=== PATIENT | female | born 1995 | race Caucasian/White ===

== ENCOUNTER 2023-11-25 14:14 | Outpatient (CLI) | payer BC, SELFPAY ==
--- NOTE | 2023-11-25 14:00 | CRLHL7_ITS ---
For Patients: As a result of the Century Cures Act, medical imaging exams and procedure reports are released immediately into your electronic medical record. You may view this report before your referring provider. If you have questions, please contact your health care provider. INDICATION: First trimester scan, establish dates. COMPARISON: None. TECHNIQUE: Real-time guadalupe-scale imaging of the pelvis was performed. FINDINGS: Sonographic imaging demonstrates a single living intrauterine gestation. The embryo demonstrates a regular cardiac rate measuring 144 beats per minute. The embryo`s crown-rump length measurement of 1 cm corresponds to a gestational age of 7 weeks 0 days with a sonographic due date of 07/13/2024. There is a normal-appearing yolk sac. There are no gross abnormalities noted within the embryo at this early state of development. The gestational sac has a normal appearance. There is no evidence of a perigestational hemorrhage. The amount of fluid within the sac appears appropriate for gestational age. The cervix is closed. The myometrium appears normal. The ovaries are of normal size. Corpus luteal cyst right ovary. There are no suspicious fluid collections noted in the cul-de-sac. IMPRESSION: Normal first trimester OB ultrasound exam. Gestational age calculated at 7 weeks 0 days with a sonographic due date of 07/13/2024. Dictated by Nilton Castorena MD @ 11/29/2023 10:29:00 AM (Electronically Signed)
== END 2023-11-25 14:15 | disposition home or self-care (01) ==
LOC: US 14:17
PROVIDERS: PCP Family Medicine; Visit Provider Registered Nurse
DX: Z34.91 Encounter for supervision of normal pregnancy, unspecified, first trimester (principal); Z3A.01 Less than 8 weeks gestation of pregnancy
CPT/HCPCS: 76817; 86592; 86703; 86704; 86706; 86762; 86787; 86803; 86850; 86900; 86901; 87086; 87340; 87491; 87591

== ENCOUNTER 2024-02-17 08:04 | Outpatient (CLI) | payer BC, SELFPAY ==
--- NOTE | 2024-02-17 08:15 | US_ITS ---
Patient: TANIA STOCK Facility:?[facility] Patient ID:?[id number] Site Patient ID:?[id number]. Site :?1995 Study:?US-OB Pelvis OB > 14wks-02/17/2024 9:54:09 AM Ordering Physician:Ceci Torres Final Report: INDICATION: Evaluate anatomy. COMPARISON: 11/25/2023 TECHNIQUE: Real time guadalupe scale imaging of the fetus was performed as well as color Doppler analysis of the umbilical vessels. FINDINGS: Sonographic imaging demonstrates a single living intrauterine gestation. Fetus demonstrates a regular cardiac rate of 152 beats per minute. Fetus has a breech position. The placenta lies fundal posterior without evidence of placenta previa. Placental edge 7.5 cm from the internal cervical os. Amniotic fluid volume appears normal. Single deepest vertical pocket: 3.2 cm. The cervix is closed and measures 3.4 cm in length. The composite ultrasound gestational age is calculated at 19 weeks 0 days with an estimated sonographic due date of 07/13/2024. The estimated weight is 267 grams which lies at the 44th %. The following biometric measurements were obtained: Biparietal diameter: 4.3 cm/18 weeks 6 days 47th% Head circumference: 15.8 cm/18 weeks 5 days 26th% Abdominal circumference: 13.2 cm/18 weeks 5 days 37th% Femur length: 3.0 cm/19 weeks 2 days 55th% The HC/AC ratio measures: 1.19 range (1.09-1.26) On anatomic survey, there is a normal appearance of the cerebral ventricles, cavum septi pellucidi, cisterna magna and cerebellum. The nose, lips, and facial profile appear normal. The cervical, thoracic and lumbar spine are not well visualized due to position. Possible echogenic focus in the left ventricle. Outflow tracts appear normal. The diaphragm and stomach appear normal. The kidneys and bladder also appear normal. There is a normal three-vessel cord and cord insertion site. The four extremities appear normal. IMPRESSION: Concordance of clinical and sonographic dating. Possible echogenic focus in the left ventricle. Incomplete visualization of the spine due to position. Follow-up in 1-2 weeks recommended. Remainder of the anatomic survey normal. Dictated by Nilton Castorena MD @ 02/17/2024 11:55:29 AM Signed by:?Nilton Castorena MD @02/17/2024 11:55:29 AM (Electronic Signature)
== END 2024-02-17 08:05 | disposition home or self-care (01) ==
LOC: US 08:04
PROVIDERS: PCP Family Medicine; Visit Provider Obstetrics & Gynecology
DX: Z34.92 Encounter for supervision of normal pregnancy, unspecified, second trimester (principal); Z3A.19 19 weeks gestation of pregnancy
CPT/HCPCS: 76805

== ENCOUNTER 2024-03-23 12:52 | Outpatient (CLI) | payer BC, SELFPAY ==
--- NOTE | 2024-03-23 13:00 | US_ITS ---
Patient: TANIA STOCK Facility:?[facility] Patient ID:?[id number] Site Patient ID:?[id number]. Site :?1995 Study:?US-OB Pelvis FOLLOW UP-03/23/2024 1:20:22 PM Ordering Physician:SUSAN FERNÁNDEZ Final Report: HISTORY: Incomplete anatomic survey COMPARISON: Early OB ultrasound from 11/25/2023 TECHNIQUE: Ultrasound examination of the is performed with transabdominal technique. FINDINGS: A single intrauterine gestation is seen in cephalic presentation with regular cardiac activity at 145 beats per minute. The placenta is posterior and is free of the cervical os. The placental grade is 1 and the amniotic fluid volume is normal. Single deepest vertical pocket: Normal at 5.0 cm. Images of the spine are normal. IMPRESSION: 1. Single intrauterine gestation in the cephalic presentation with regular cardiac activity. 2. Images of the spine are normal. Dictated by Tru Cobb MD @ 03/24/2024 10:38:39 PM Signed by:?Tru Cobb MD @03/24/2024 10:38:39 PM (Electronic Signature)
== END 2024-03-23 12:53 | disposition home or self-care (01) ==
LOC: US 12:53
PROVIDERS: PCP Family Medicine; Visit Provider Obstetrics & Gynecology
DX: Z34.90 Encounter for supervision of normal pregnancy, unspecified, unspecified trimester (principal)
CPT/HCPCS: 76816

== ENCOUNTER 2024-05-02 13:20 | Outpatient (CLI) | payer BC, SELFPAY | END 2024-05-02 13:21 | disposition home or self-care (01) | LOC: NFLDREF 05-18 15:26 | PROVIDERS: PCP Family Medicine; Referring Provider Family Medicine; Visit Provider Obstetrics & Gynecology | DX: Z34.83 Encounter for supervision of other normal pregnancy, third trimester (principal) | CPT/HCPCS: 86592 ==

== ENCOUNTER 2024-05-30 10:32 | Outpatient (CLI) | payer BC, SELFPAY | END 2024-05-30 10:33 | disposition home or self-care (01) | LOC: NFLDREF 06-01 05:52 | PROVIDERS: PCP Family Medicine; Referring Provider Family Medicine; Visit Provider Obstetrics & Gynecology | DX: Z34.90 Encounter for supervision of normal pregnancy, unspecified, unspecified trimester (principal) | CPT/HCPCS: 82728 ==

== ENCOUNTER 2024-06-12 17:23 | Outpatient (CLI) | payer BC, SELFPAY ==
[2024-06-13 15:14] LABS: Strep B DNA Probe Negative (Negative)
[2024-06-15 12:10] LABS: Strep B Susceptibility Needed? No
== END 2024-06-12 17:24 | disposition home or self-care (01) ==
LOC: NFLDREF 17:23
PROVIDERS: PCP Family Medicine; Visit Provider Registered Nurse
DX: Z34.93 Encounter for supervision of normal pregnancy, unspecified, third trimester (principal); Z3A.35 35 weeks gestation of pregnancy
CPT/HCPCS: 87081; 87653

== ENCOUNTER 2024-07-14 17:15 | Outpatient (CLI) | payer BC, SELFPAY ==
[2024-07-14 17:30] VITALS: PULSE 79; O2SAT 97
[2024-07-14 17:32] VITALS: BP 121/74; PULSE 75
[2024-07-14 17:35] VITALS: PULSE 85; O2SAT 97
--- NOTE | 2024-07-14 19:28 | PC.OBNST ---
NST Note NST Note Start: 07/14/24 17:22 Freq: ONCE Status: Active Protocol: Document 07/14/24 19:25 VMM (Rec: 07/14/24 19:28 VMM Desktop) NST Note 3 Para (# of births) 2 EDC 07/13/24 Gestational Age In Weeks & Days 40 Weeks & 1 Days Patient Presented with Complaint(s) of Contractions/cramping Reactive Yes RN Lilian Barakat, RN, Lenora Woodard, RN Date 07/14/24 Reactive Yes CHRISTINE Choudhary, RN Date 07/14/24 OB NST charge Yes Complete NST Note via Write Note Yes The provider's electronic signature indicates the NST is reactive/appropriate for gestational age. *Note to provider: If an addendum is required, open the patient's chart and click on the note under the Nurse/Allied Health tab.
== END 2024-07-14 19:20 | disposition home or self-care (01) ==
LOC: OB OUT 17:15 → OB 17:16
PROVIDERS: PCP Family Medicine; Visit Provider Obstetrics & Gynecology
DX: O47.1 False labor at or after 37 completed weeks of gestation (principal); Z3A.40 40 weeks gestation of pregnancy
CPT/HCPCS: 59025; G0463

== ENCOUNTER 2024-07-16 03:54 | Inpatient (IN) | payer BC, SELFPAY ==
[2024-07-16] VITALS (20 sets, daily range): BP systolic 108–145; BP diastolic 57–94; PULSE 66–106; RESP 16; TEMP 36.7–36.9; O2SAT 97–99; BMI 27.3
[2024-07-16 03:42] LABS: Amnisure Rom* Negative
[2024-07-16] MEDS: LACTATED RINGERS 1000 ML 1,000 ML 1200 ML IV (04:00)
[2024-07-16 04:17] LABS: Hemoglobin* 10.9 gm/dL (12.0-16.0); Mean Corpuscular HGB Conc 32 gm/dL (32-36); Mean Corpuscular Hemoglobin 28 pg (26-34); Mean Corpuscular Volume 87 fL (80-100); Platelet Count* 260 K/uL (140-440); Red Blood Count 3.93 m/uL (4.00-5.20); White Blood Count* 10.36 K/uL (4.50-11.00)
[2024-07-16 04:18] LABS: Slide Review Reflex No
[2024-07-16 04:42] LABS: Alanine Aminotransferase* 10 U/L (4-35); Aspartate Amino Transferase* 19 U/L (12-35); Blood Urea Nitrogen* 9 mg/dL (5-24); Creatinine* 0.5 mg/dL (0.5-1.5); Estimated Glomerular Filt Rate 130 ml/min
[2024-07-16] MEDS: LACTATED RINGERS 1000 ML 1,000 ML 125 ML IV (05:04)
[2024-07-16] MEDS: OXYTOCIN 30 unit/500 ML in NS 30 UNIT/500 ML BAG 300 UNIT IVPB (05:13)
--- NOTE | 2024-07-16 05:23 | W.PM.LDBA ---
Subjective History of Present Illness Date Seen: 07/16/24 Narrative: Patient is being admitted to Labor and Delivery for labor. She is a 29 year old at 40 3/7 weeks gestation. She had AROM at 1:58 AM for thin meconium stained fluid. She was having strong contractions upon arrival, and went on to have a precipitous vaginal . Her full history and physical was dictated by Dr. Petty on 06/22/24. Please see this for details. She had one mildly elevated blood pressure around time of admission. Specific Issues/Plans G 3 P 2001 Fiance: Jania (This will be their 2nd child together. He has 2 kids from previous relationship.) Normal genetic screening, girl! #Anemia -Hgb at 29 weeks: 10.6mg/dL -PO iron -Hgb at 34 weeks: 10.7. Patient states she did not start an iron supplement. I did recommend she initiate this. #Asthma - Rx for albuterol inhaler provided, recommend PCP eval if worsening sx Will need PP pap. Flu: Recommended. Not vaccinated, declines Covid: Recommended. Not vaccinated, declines Tdap: Declines. H&P: Dr. Petty on 06/22/24 PP contraception: Partner's vasectomy OB - Problem Based A/P Additional Plan (1) (normal spontaneous vaginal delivery): Status: Acute Plan Routine care OB Result Labs Labs: Hemoglobin 10.9, platelets 260 BUN 9, creatinine 0.5 AST 19, ALT 10 OB Exam Physical Exam Vital signs: Pulse BP Pulse Ox 75 137/69 99 07/16/24 05:17 07/16/24 05:17 07/16/24 05:09 Narrative: Physical exam: General: No acute distress Psych: Alert and oriented x3, full affect HEENT: Normocephalic, atraumatic Heart: Regular rate and rhythm, no murmur rub or gallop Lungs: Clear to auscultation bilaterally Abdomen: Now soft, nontender, fundus just below umbilicus Lower extremities: No edema or erythema Pelvic exam: No perineal lacerations
--- NOTE | 2024-07-16 05:30 | W.PM.VAGDEL1 ---
Procedure Delivery date: 07/16/24 Procedure Done: [employer] Procedure Details: The patient is a 29 year-old G 3 P 2-0-0-2 admitted on 07/16/2024 at 40 Weeks, 3 Days gestation for labor.? Cervical exam on admission was 5 cm/40 % effaced/-2 station with membranes ruptured in vertex presentation.? Contractions were every 5 minutes.? heart rate demonstrated baseline 110 bpm with moderate variability, positive accelerations, no decelerations; a category 1 tracing.? SROM had occurred at 1:55 a.m. with thin meconium-stained fluid. ? Labor Analgesia:? None given precipitous nature of delivery ? Pitocin:? No ? Labor onset:? 3:30 a.m. ? Complete:? 5:05 a.m. ? Pushing:? 5:09 a.m. ? heart tones during second stage were showed some values in the 100s, but the tracing was discontinuous and the 2nd stage quite short. ? At 5:11 a.m. a viable female delivered in vertex presentation over intact perineum via spontaneous vaginal delivery.? was placed on maternal abdomen.? Cord was clamped and cut after a 30-60 second delay.? Nose and mouth were bulb suctioned.? Infant weight pending.? 8 at 1 minute and 9 at 5 minutes.? Shoulder dystocia: No.? Nuchal cord: No. ? Placenta delivered spontaneously and complete at 5:16 a.m. with a 3 vessel cord. ? Mother and were stable after delivery. ? Lacerations:? None. ? Blood loss: 250 mL. Blood loss measurement type: QBL ? Sponge and needles counts are correct.
[2024-07-16] MEDS: OXYCODONE 5 MG TABLET PO (05:35)
[2024-07-16] MEDS: KETOROLAC 30 MG/ML inj IVP (05:55)
[2024-07-17 01:00] VITALS: BP 116/79; PULSE 73; RESP 16; TEMP 36.8; O2SAT 97
[2024-07-17 04:51] VITALS: BP 114/79; PULSE 76; RESP 16; TEMP 36.7; O2SAT 97
--- NOTE | 2024-07-17 08:27 | PM.OBDSVD1 ---
DS: Providers Provider Date Seen: 07/17/24 Date of admission: 07/16/24 03:54 Primary care physician: John Hung MD Admitting Clinician: Priscilla Vizcarra MD Attending Physician on discharge: Priscilla Vizcarra MD Date of Discharge: 07/17/24 DS: Diagnosis Discharge Diagnosis (1) care and examination immediately after delivery: Status: Acute (2) Lactating mother: Status: Acute Exam Narrative: Exam Narrative: VSS, afebrile GENERAL APPEARANCE: ?normal affect, alert, no distress MOOD: ?appropriate HEENT: normocephalic, neck supple, full ROM CHEST: ?Symmetrical chest wall movement. ?Normal respiratory effort. ?Clear to auscultation HEART: ?regular rate and rhythm ABDOMEN: ?soft, non-tender. Uterine fundus is firm, at Umbilicus, Midline and is appropriate for the stage of recovery. ?Bowel sounds present. PERINEUM: ?mild edema of the perineum. Intact. EXTREMITIES: ?normal and no edema Const: Vital Signs, click to edit/add: Vital Signs - 24 hr 07/16/24 12:33 07/16/24 16:25 07/16/24 19:46 Temperature 98.1 F 98.4 F Pulse Rate [Pulse Oximeter] 77 74 70 Respiratory Rate 16 16 16 Blood Pressure [Ri ght Arm] 120/78 112/72 118/77 Pulse Oximetry 98 97 98 Oxygen Delivery Me thod Room Air Room Air Room Air 07/17/24 01:00 07/17/24 04:51 Temperature 98.3 F 98.1 F Pulse Rate [Pulse Oximeter] 73 76 Respiratory Rate 16 16 Blood Pressure [Ri ght Arm] 116/79 114/79 Pulse Oximetry 97 97 Oxygen Delivery Me thod Room Air Room Air Documenting provider has reviewed patient's vital signs: yes OB - DS: Summary Hospital Course Hospital Course: Izabela is a 29 y.o. who was admitted to L & D for labor. ?She had an uncomplicated NVD.?The patient feels well. ?The pain is well controlled with current medications. ?She has no new complaints. ?She is breast feeding and reports things are going well.? the patient has done well.? Vitals have been stable.? She has remained afebrile.? Has a good appetite, is tolerating a general diet. ?She is voiding without difficulty.? She is passing gas and has not had a bowel movement.? She is ambulating and denies any dizziness.? Has Small amount of rubra lochia. ?She is undecided about her plan for prevention. Peripartum Data Infant delivery method: Vaginal Infant Gender: Female Discharge Plan: Home Status at Discharge Functional status at discharge: independent ambulation Overall status at discharge: patient is progressing back to baseline Time Spent with Patient Time attestation: Total time spent providing and/or coordinating discharge services: Time spent: Less than 30 minutes Discharge Plan Discharge Disposition: Home, Self-Care Date of Admission: 07/16/24 03:54 Attending Provider on Discharge: Sergio Castañeda Primary Care Provider: John Hung Condition: Stable Anticipated Discharge Date/Time: 07/17/24 12:00 Discharge Medications: New acetaminophen 500 mg Tablet 1,000 mg PO Q6H PRNQty: 0 0RF docusate sodium 100 mg Capsule 100 mg PO DAILY Qty: 90 2RF ibuprofen 600 mg Tablet 600 mg PO Q6H PRNQty: 60 0RF Continued [id number] 1 mg tablet 1 tab PO DAILY ferrous sulfate 27 mg iron tablet 27 mg PO QDAY Hold Instructions: per patient Discharge Orders: Discharge Order (Routine); Ordered 07/17/24 Ordered By: Sergio Castañeda Patient Education: OB Over the Counter Medication Information, OB Vaginal/Breast Feeding Additional Instructions: Discharge instructions were reviewed with the patient including signs and symptoms of infection and home going medications Nothing vaginally for 6 weeks: no tampons or intercourse Off Work or School for 6 weeks 2-week visit: discuss infant feeding concerns, review control options and screen for anxiety/depression. 6-week visit for an annual exam. consultation services are available to all mothers and babies for the first year after delivery.? To make an appointment, please call [phone]. Activity Level: Activity as Tolerated Discharge Diet: Regular Follow Up Appointments: John Hung MD [Primary Care Provider] - [facility] [Provider Group] Forms: [employer] Info Instructions
[2024-07-17 09:50] VITALS: BP 108/71; PULSE 92; RESP 16; TEMP 36.6; O2SAT 93
[2024-07-17 17:47] LABS: Rapid Plasma Reagin (RPR) Non Reactive (Non Reactive)
== END 2024-07-17 10:54 | disposition home or self-care (01) | DRG 560 ==
LOC: OB OUT 03:54 → OB 07-17 08:30
PROVIDERS: Admitting Provider Obstetrics & Gynecology; PCP Family Medicine; Visit Provider Obstetrics & Gynecology
DX: O77.0 Labor and delivery complicated by meconium in amniotic fluid (principal); O62.3 Precipitate labor; O99.02 Anemia complicating childbirth; D50.9 Iron deficiency anemia, unspecified; J45.909 Unspecified asthma, uncomplicated; Z3A.40 40 weeks gestation of pregnancy; Z37.0 Single live birth
CPT/HCPCS: 36415; 82565; 84112; 84450; 84460; 84520; 85018; 85027; 86592; G0463; A9270; J1885; J2371; J7120

== ENCOUNTER 2024-08-28 13:53 | Outpatient (CLI) | payer BC, SELFPAY ==
[2024-08-31 01:43] LABS: HPV Source Cervix; HPV, High Risk by TMA Not Detected
== END 2024-08-28 13:54 | disposition home or self-care (01) ==
PROVIDERS: PCP Family Medicine; Visit Provider Registered Nurse
DX: D64.9 Anemia, unspecified (principal); Z12.4 Encounter for screening for malignant neoplasm of cervix
CPT/HCPCS: 87624; 87625; 88141; 88142